=== PATIENT | female | born 1985 | race Caucasian/White ===

== ENCOUNTER 2017-02-06 07:53 | Inpatient (IN) | payer BC ==
[2017-02-06] MEDS ORDERED: Ampicillin 2 GM in Sodium Chloride 0.9% 100 ML IV ONE (17:57)
[2017-02-06] MEDS ORDERED: Sodium Chloride 0.9% 10 ML Syringe FLUSH PRN (17:58)
[2017-02-06] MEDS ORDERED: Lactated Ringers 1,000 ML IV SCH ×2 (18:00→18:15)
[2017-02-06] MEDS ORDERED: Ondansetron 4 MG/2 ML SDV IVPUSH PRN (18:02)
[2017-02-06] MEDS ORDERED: Lidocaine 1% 50 ML MDV INJECT ONE (18:02)
[2017-02-06] MEDS ORDERED: Oxytocin/Lactated Ringers 10 UNIT/1,000 ML BAG IV ONE (20:25)
[2017-02-06] MEDS ORDERED: Oxytocin/Lactated Ringers 10 UNIT/1,000 ML BAG IV SCH (20:30)
--- NOTE | 2017-02-06 21:24 | PCM.LDHP ---
L&D History of Present Illness - General Date of Service: 02/06/17 Admit Problem/Dx: Patient Status Order with Admit Dx/Problem 02/06/17 17:59 Patient Status [ADT] Routine Admission Diagnosis/Problem Admission Diagnosis/Problem 02/06/17 21:19 Intrauterine at 36-4/7 weeks gestation with onset of contractions 2-3 minutes apart. Source of Information: Patient History Limitations: Reports: No limitations - History of Present Illness Introduction:: Marcela is a 31-year-old 9 para 4-0-4-4 female who presents with contractions every 2-3 minutes apart, in early labor. ENE is 03/02/17 based on LMP. She was seen in clinic this afternoon and was calixto but with minimal pain. Her contractions were monitored in clinic - she had a reactive Nonstress test and negative contraction test - so she was sent to L&D. Contractions have progressed and she is starting to feel pain. Artificial rupture of membranes was performed. history: Marcela had regular care throughout this . She had bleeding early on that resolved without problems. An ultrasound was done in [place] at 15-0/7 weeks gestation and showed a subchorionic hemorrhage. Repeat ultrasound later showed the hemorrhage decreasing in size. She has also had some hair loss. She lives in [place] and has been concerned about making it to [place] for delivery. 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 ENE 03/02/17 based on LMP of 05/26/17. She has a history of 4 miscarriages in her 1st, 3rd, 5th, and 8th pregnancies. The second ended with a normal spontaneous vaginal delivery at 39 weeks gestation: 7lbs, 9oz female. Fourth ended with normal spontaneous vaginal delivery at 37 weeks with a 6lbs 13oz male. Her sixth and seventh pregnancies were also spontaneous vaginal deliveries: sixth was a 7lbs 11oz female delivered at 38 weeks and seventh delivered at 36 weeks with a 7lbs 9oz female. Menarche was at age 13. Menses are typically regular, 28 days apart, with moderate flow. No history of STIs. She is up-to-date on pap smears. blood work: Blood type AB positive, antibody negative. Rubella immune, VDRL/RPR nonreactive. HBsAg and HIV negative. Chlamydia and gonorrhea also negative. GBS positive. 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 Family History: - Mother: alive, some ortho problems - Father: alive, pancreatic cancer years ago, has mets now - One brother: alive and well - MGF: , pancreatic cancer - MGM: , metastatic cancer, HTN - PGF: , lung cancer - PGM: alive and well No history of reactions to anesthesia or bleeding/clotting disorders. Social History: Patient lives with her and four children in [place]. She denies use of tobacco products, alcohol, and illicit drugs. Review of Systems: General: Patient feels well overall, getting uncomfortable HEENT: No recent headaches, changes in vision. No rhinorrhea, sore throat. Cardiovascular: No chest pain or palpitations. Respiratory: No shortness of breath or wheezing. GI: No nausea or vomiting : Increased frequency, related to . Neuro/Psych: No signs of depression or anxiety. Physical Exam: General: The patient is a well-nourished female in no acute distress. HEENT: Normocephalic, atraumatic. PERRLA. Mucous membranes pink and moist. Neck: Supple, without masses. Cardiovascular: Regular rate and rhythm, without murmur. Respiratory: Clear to auscultation bilaterally. Abdomen: Gravid uterus, appropriate for gestational age. Cervical: 4+ cm, 0 station, 80% effaced, very soft, anterior Extremities: No swelling/edema. Neuro: Normal. - Related Data Allergies/Adverse Reactions: Allergies Allergy/AdvReac Type Severity Reaction Status Date / Time No Known Allergies Allergy Verified 02/13/15 10:20 CDT Home Medications: Home Meds . 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: , Spontaneous , Other (see below) Other OB/BYN History: 4 living children, 4 miscarriages Social & Family History - Family History Family Medical History: Noncontributory Oncologic: Reports: Pancreatic - Tobacco Use Smoking Status *Q: Never Smoker Second Hand Smoke Exposure: No - Caffeine Use Caffeine Use: Reports: None - Alcohol Use Days Per Week of Alcohol Use: 0 - Recreational Drug Use Recreational Drug Use: No H&P Review of Systems - Review of Systems: Review Of Systems: See Below L&D Exam - Exam Exam: See Below - Vital Signs Vital Signs: Last Vital Signs Temp 36.9 C 02/06/17 16:46 Pulse 75 02/06/17 16:46 Resp 18 02/06/17 16:46 BP 126/88 02/06/17 16:46 Pulse Ox Weight: 88.904 kg - Patient Data Lab Results last 24 hrs: Laboratory Results - last 24 hr 02/06/17 Range/Units 13:52 Urine Color Yellow (Yellow) Urine Appearance Clear (Clear) Urine pH 7.0 (5.0-8.0) Ur Specific [place] 1.015 (1.005-1.030) Urine Protein Negative (Negative) Urine Glucose (UA) Negative (Negative) Urine Ketones Negative (Negative) Urine Occult Blood Negative (Negative) Urine Nitrite Negative (Negative) Urine Bilirubin Negative (Negative) Urine Urobilinogen 0.2 (0.2-1.0) Ur Leukocyte Esterase Trace H (Negative) Problem List Initiated/Reviewed/Updated: Yes Orders Last 24hrs: Active Orders 24 hr Category Date Time Status Patient Status [ADT] Routine ADT 02/06/17 17:59 Active Activity as Tolerated [RC] PFP Care 02/06/17 17:58 Active Activity as Tolerated [RC] PFP Care 02/06/17 18:02 Active Communication Order [RC] ASDIRECTED Care 02/06/17 17:58 Active Communication Order [RC] ASDIRECTED Care 02/06/17 18:02 Active Heart Tones [RC] ASDIRECTED Care 02/06/17 18:00 Active Notify Provider [RC] PFP Care 02/06/17 17:58 Active Notify Provider [RC] PFP Care 02/06/17 18:02 Active Notify Provider [RC] PRN Care 02/06/17 17:58 Active Notify Provider [RC] PRN Care 02/06/17 18:02 Active OB Check [OM.PC] Click To Edit Care 02/06/17 17:56 Ordered Peripheral IV Care [RC] . DIRECTED Care 02/06/17 18:00 Active Pump Management, Intrathecal [RC] ASDIRECTED Care 02/06/17 18:01 Active Urinary Catheter Assessment [RC] ASDIRECTED Care 02/06/17 17:58 Active Vital Signs [RC] 04,12,20 Care 02/06/17 18:02 Active Vital Signs [RC] PER UNIT ROUTINE Care 02/06/17 17:58 Active Clear Liquid Diet [DIET] Diet 02/06/17 Dinner Active Regular Diet [DIET] Diet 02/06/17 Dinner Active Ampicillin 1 gm Med 02/06/17 22:00 Active Sodium Chloride 0.9% [Normal Saline] 100 ml IV Q4H Lactated Ringers [Ringers, Lactated] 1,000 ml Med 02/06/17 18:00 Active IV ASDIRECTED Lactated Ringers [Ringers, Lactated] 1,000 ml Med 02/06/17 18:15 Active IV ASDIRECTED Ondansetron [Zofran] Med 02/06/17 18:02 Active 4 mg IVPUSH Q4H PRN Oxytocin/Lactated Ringers [Pitocin in LR 10 Units/1,000 Med 02/06/17 20:30 Active ML] 10 unit in 1,000 ml IV ASDIRECTED Sodium Chloride 0.9% [Saline Flush] Med 02/06/17 17:58 Active 10 ml FLUSH ASDIRECTED PRN Electronic Heart Tones Ext w TOCO [WOMSER] Ot 02/06/17 17:58 Ordered Routine Electronic Heart Tones Ext w TOCO [WOMSER] Ot 02/06/17 18:02 Ordered Routine Electronic Heart Tones Internal [WOMSER] Per Unit Ot 02/06/17 17:58 Ordered Routine Electronic Heart Tones Internal [WOMSER] Per Unit Ot 02/06/17 18:02 Ordered Routine Peripheral IV Insertion Adult [OM.PC] Routine Ot 02/06/17 17:58 Ordered Peripheral IV Insertion Adult [OM.PC] Routine Ot 02/06/17 18:02 Ordered Resuscitation Status Routine Resus Stat 02/06/17 17:58 Ordered Medication Orders Ampicillin Sodium 1 gm/ Sodium (Chloride) 100 mls @ 200 mls/hr IV Q4H MISTY Lactated Ringer's (Ringers, Lactated) 1,000 mls @ 100 mls/hr IV ASDIRECTED MISTY Lactated Ringer's (Ringers, Lactated) 1,000 mls @ 100 mls/hr IV ASDIRECTED MISTY Oxytocin/Lactated Ringer's (Pitocin In Lr 10 Units/1,000 Ml) 10 unit in 1,000 mls @ 500 mls/hr IV ASDIRECTED [facility] Ondansetron HCl (Zofran) 4 mg IVPUSH Q4H PRN PRN Reason: Nausea/Vomiting Sodium Chloride (Saline Flush) 10 ml FLUSH ASDIRECTED PRN PRN Reason: Keep Vein Open Assessment/Plan Comment:: Assessment: 1. Intrauterine at 36-4/7 weeks gestation with onset of labor of contractions 2-3 minutes apart, with cervical change. 2. GBS positive. 3. Plans natural labor - without epidural. 4. Plans to nurse. Plan: 1. Anticipate normal spontaneous vaginal delivery. 2. IV ampicillin for GBS prophylaxis. 3. Encourage nursing behaviors.
[2017-02-06] MEDS ORDERED: Ampicillin 1 GM in Sodium Chloride 0.9% 100 ML IV SCH (22:00)
--- NOTE | 2017-02-06 22:37 | PCM.SN ---
- Free Text/Narrative Note: Marcela is a 31-year-old G9 now P4-1-4-5 female who presented with contractions 2-3 minutes apart at 36-4/7 weeks gestation. She progressed to 5 cm and artificial rupture of membranes was performed. She then quickly progressed to complete and pushed once. She delivered a 2990g, 6lb 9oz, 19.25 in female, in VALERIY position over an intact perineum at 2212 hours. There was blood-tinged amniotic fluid and 3-vessel cord was noted. IV pitocin was then started. Apgars were 8 and 9, at 1 and 5 minutes, respectively. Placenta then delivered at 2216 hours in Kaye presentation. It was noted to have old clots as well as new blood clots, but was intact. She did have a minor superficial abrasion on the right labia minora but it did not need any sutures. No epidural or other pain medications were used. EBL 200cc. Patient plans to nurse. Mom and baby doing well.
[2017-02-06] MEDS ORDERED: Witch Hazel Medicated Pads 100/Jar TOP PRN (23:18)
[2017-02-06] MEDS ORDERED: Acetaminophen 325 MG Tab PO PRN (23:18)
[2017-02-06] MEDS ORDERED: Benzocaine/Menthol 20%-0.5% Spray 56 GM Canister TOP PRN (23:18)
[2017-02-06] MEDS ORDERED: Lanolin 100% Cream 7 GM Tube TOP PRN (23:18)
[2017-02-06] MEDS ORDERED: Docusate Sodium 100 MG Cap PO PRN (23:18)
[2017-02-07] MEDS: Ibuprofen 600 MG Tab PO PRN (00:10)
--- NOTE | 2017-02-07 09:28 | PCM.SN ---
- Free Text/Narrative Note: Subjective: This is day of delivery for Marcela. She is feeling well today, has minimal pain, and is resting comfortable. She is breast feeding and states it is going well. Objective: WBC 12.7, Hgb 9.1, Hct 30%. Vital signs are stable. She is afebrile. Abdomen is soft, nondistended, nontender. Uterine fundus is firm and below the umbilicus. No extremity swelling or pain. Assessment: 1. Day of delivery, post normal spontaneous vaginal delivery. 2. Breast feeding. Plan: 1. Patient may go home tomorrow, depends on when baby is discharged. 2. Continue breast feeding behaviors.
[2017-02-08] MEDS: Ibuprofen 600 MG Tab PO PRN (00:31)
--- NOTE | 2017-02-08 07:30 | PCM.DCSUM1 ---
Discharge Summary - Hospital Course Free Text/Narrative:: Marcela is a 31-year-old G9 now P4-1-4-5 female who presented with contractions 2-3 minutes apart at 36-4/7 weeks gestation. She progressed to 5 cm and artificial rupture of membranes was performed. She then quickly progressed to complete and pushed once. She delivered a 2990g, 6lb 9oz, 19.25 in female, in VALERIY position over an intact perineum at 2212 hours. There was blood-tinged amniotic fluid and 3-vessel cord was noted. IV pitocin was then started. Apgars were 8 and 9, at 1 and 5 minutes, respectively. Placenta then delivered at 2216 hours in Kaye presentation. It was noted to have old clots as well as new blood clots, but was intact. She did have a minor superficial abrasion on the right labia minora but it did not need any sutures. No epidural or other pain medications were used. EBL 200cc. Patient plans to nurse. Mom and baby doing well. patient is doing well. She is nursing well, lochia is minimal. She is ambulating well, voiding without problems and has no concerns. She desires discharge today. - Discharge Data Discharge Date: 02/08/17 Discharge Disposition: Home, Self-Care 01 Condition: Good - Patient Instructions Diet: Regular Diet as Tolerated (Nursing diet was increased calories and calcium.) Activity: As Tolerated (No intercourse or tampons until bleeding resolves.) Driving: May Drive Today Showering/Bathing: May Shower (May take a bath) Notify Provider of: Fever, Increased Pain, Swelling and Redness, Nausea and/or Vomiting - Discharge Plan Home Medications: Home Meds Ibuprofen [IJD: Ibuprofen] 600 mg PO Q4H PRN #30 tablet 02/08/17 [Rx] Referrals: Brandon Alexander MD [Physician] - (Return to clinic-Dr. Alexander-6 weeks-[facility].) - Discharge Summary/Plan Comment DC Time >30 min.: No Discharge Summary/Plan Comment: Discharge instructions: 1. Discharge home 2. Regular, high fiber, nursing diet. 3. Precautions given concern increased pain, bleeding, temperature, signs/ symptoms of DVT/PE 4. Medications per home medication as printed, discussed with then given to the patient. 5. Return to clinic-Dr. Alexander-6 weeks-[facility] [facility]. Diagnosis: 36-4/7 week IUP-delivered Condition: Good - Patient Data Vitals - Most Recent: Last Vital Signs Temp 36.5 C 02/08/17 04:26 Pulse 83 02/08/17 04:26 Resp 18 02/08/17 04:26 BP 113/77 02/08/17 04:26 Pulse Ox 99 02/08/17 04:26 Weight - Most Recent: 88.904 kg Lab Results - Last 24 hrs: Laboratory Results - last 24 hr 02/07/17 Range/Units 07:05 WBC 12.69 H (3.98-10.04) K/mm3 RBC 4.15 (3.98-5.22) M/mm3 Hgb 9.1 L (11.2-15.7) gm/L Hct 30.0 L (34.1-44.9) % MCV 72.3 L (79.4-94.8) fl MCH 21.9 L (25.6-32.2) pg MCHC 30.3 L (32.2-35.5) g/dl RDW Std Deviation 42.3 (36.4-46.3) fL Plt Count 263 (182-369) K/mm3 MPV 10.7 (9.4-12.3) fl Med Orders - Current: Current Medications Acetaminophen (Tylenol) 650 mg PO Q4H PRN PRN Reason: mild pain or fever Benzocaine/Menthol (Dermoplast Pain Relief [place]) 0 gm TOP ASDIRECTED PRN PRN Reason: Perineal Comfort Measure Last Admin: 02/07/17 00:09 Dose: 1 applic Docusate Sodium (Colace) 100 mg PO BID PRN PRN Reason: Constipation Emollient Ointment (Lansinoh Hpa) 0 gm TOP ASDIRECTED PRN PRN Reason: Sore Nipples Ibuprofen (Motrin) 600 mg PO Q4H PRN PRN Reason: Mild pain or fever Last Admin: 02/08/17 00:31 Dose: 600 mg Witch Justina (Tucks) 1 pad TOP ASDIRECTED PRN PRN Reason: Hemorrhoid pain Last Admin: 02/07/17 00:09 Dose: 1 applic Discontinued Medications Ampicillin Sodium 2 gm/ Sodium (Chloride) 100 mls @ 200 mls/hr IV ONETIME ONE Stop: 02/06/17 18:26 Last Admin: 02/06/17 18:23 Dose: 200 mls/hr Ampicillin Sodium 1 gm/ Sodium (Chloride) 100 mls @ 200 mls/hr IV Q4H [facility] Last Admin: 02/06/17 22:00 Dose: 200 mls/hr Lactated Ringer's (Ringers, Lactated) 1,000 mls @ 100 mls/hr IV ASDIRECTED MISTY Lactated Ringer's (Ringers, Lactated) 1,000 mls @ 100 mls/hr IV ASDIRECTED MISTY Oxytocin/Lactated Ringer's (Pitocin In Lr 10 Units/1,000 Ml) 10 unit in 1,000 mls @ 500 mls/hr IV ASDIRECTED MISTY Last Admin: 02/06/17 22:12 Dose: 500 mls/hr Oxytocin/Lactated Ringer's (Pitocin In Lr 10 Units/1,000 Ml) Confirm Administered Dose 10 unit in 1,000 mls @ as directed IV .STK-MED ONE Stop: 02/06/17 20:26 Last Admin: 02/07/17 00:51 Dose: Not Given Lidocaine HCl (Xylocaine 1%) 10 ml INJECT ONETIME ONE Stop: 02/06/17 18:03 Last Admin: 02/07/17 00:51 Dose: Not Given Ondansetron HCl (Zofran) 4 mg IVPUSH Q4H PRN PRN Reason: Nausea/Vomiting Sodium Chloride (Saline Flush) 10 ml FLUSH ASDIRECTED PRN PRN Reason: Keep Vein Open *Q Meaningful Use (DIS) - VTE *Q VTE Criteria *Q: - Stroke *Q Stroke Criteria *Q: - AMI *Q AMI Criteria *Q:
[2017-02-08 13:34] VITALS: BP 124/83
== END 2017-02-08 12:20 | disposition home or self-care (01) | DRG 560 ==
LOC: JD.WOMH 07:53 → JD.OBCHECK 07:53 → JD.OB 16:25 → JD.OBCHECK 17:59 → JD.OB 17:59 → OBSVTOIN 22:12
PROVIDERS: ADMIT Obstetrics & Gynecology; ATTEND Obstetrics & Gynecology
PROC: 10E0XZZ Delivery of Products of Conception, External Approach (ICD-10-PCS; principal; 2017-02-06)
PROC: 10907ZC Drainage of Amniotic Fluid, Therapeutic from Products of Conception, Via Natural or Artificial Opening (ICD-10-PCS; 2017-02-06)
DX: O99.824 Streptococcus B carrier state complicating childbirth (principal); Z3A.37 37 weeks gestation of pregnancy; Z37.0 Single live birth
CPT/HCPCS: 36415; 81003; 85027; A9270-GY; J0290; J2590; J7030

== ENCOUNTER 2020-01-10 09:11 | Day surgery (SDC) | payer BC, OTHER ==
[~2020-01-10 09:11] MED LIST: Lactated Ringers 1,000 ML IV SCH; Lidocaine 1%/Sod Bicarbonate in NS 8.4% 1 ML Syringe IDERM PRN; Sodium Chloride 0.9% 10 ML Syringe FLUSH PRN
[2020-01-10] MEDS ORDERED: Scopolamine 1.5 MG Transdermal Patch TRDERM ONE (09:45)
--- NOTE | 2020-01-10 09:45 | PCM.PREANE ---
Preanesthetic Assessment - Anesthesia/Transfusion/Family Hx Anesthesia History: Prior Anesthesia Without Reaction Transfusion History: No Prior Transfusion(s) - Review of Systems General: No Symptoms Pulmonary: No Symptoms Cardiovascular: No Symptoms Gastrointestinal: No Symptoms Neurological: No Symptoms Other: Reports: None - Physical Assessment NPO Status Date: 01/09/20 NPO Status Time: 17:00 ASA Class: 1 Mental Status: Alert & Oriented x3 Airway Class: Mallampati = 1 Dentition: Reports: Normal Dentition Thyro-Mental Finger Breadths: 3 Mouth Opening Finger Breadths: 3 ROM/Head Extension: Full Lungs: Clear to Auscultation, Normal Respiratory Effort Cardiovascular: Regular Rate, Regular Rhythm - Allergies Allergies/Adverse Reactions: Allergies Allergy/AdvReac Type Severity Reaction Status Date / Time No Known Allergies Allergy Verified 01/09/20 12:06 - Acknowledgements Anesthesia Type Planned: General Anesthesia, MAC Pt an Appropriate Candidate for the Planned Anesthesia: Yes Alternatives and Risks of Anesthesia Discussed w Pt/Guardian: Yes Pt/Guardian Understands and Agrees with Anesthesia Plan: Yes PreAnesthesia Questionnaire - Past Health History Medical/Surgical History: Denies Medical/Surgical History HEENT History: Reports: Impaired Vision Cardiovascular History: Reports: None Respiratory History: Reports: None Gastrointestinal History: Reports: Other (See Below) Other Gastrointestinal History: abdominal pain Genitourinary History: Reports: UTI, Recurrent, Other (See Below) Other Genitourinary History: frequency 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: , Spontaneous , Other (See Below) Other OB/BYN History: SAB, , low progestone, yeast infection, breast implants Musculoskeletal History: Reports: None Neurological History: Reports: Migraines Psychiatric History: Reports: Anxiety, Depression, Other (See Below) Other Psychiatric History: post depression Endocrine/Metabolic History: Reports: None Hematologic History: Reports: None Immunologic History: Reports: None Oncologic (Cancer) History: Reports: None Dermatologic History: Reports: Other (See Below) Other Dermatologic History: inclusion cyst, hair loss - Infectious Disease History Infectious Disease History: Reports: None - Past Surgical History Head Surgeries/Procedures: Reports: None HEENT Surgical History: Reports: LASIK Cardiovascular Surgical History: Reports: None Respiratory Surgical History: Reports: None GI Surgical History: Reports: None Female Surgical History: Reports: Breast Implant (2015, removed 2018), D&C Male Surgical History: Reports: None Endocrine Surgical History: Reports: None Neurological Surgical History: Reports: None Musculoskeletal Surgical History: Reports: None Oncologic Surgical History: Reports: None Dermatological Surgical History: Reports: None - SUBSTANCE USE Smoking Status *Q: Never Smoker Recreational Drug Use History: No - HOME MEDS Home Medications: Home Meds Multivitamin [Multiple Vitamins] 1 tab PO DAILY 01/09/20 [History] - CURRENT (IN HOUSE) MEDS Current Meds: Current Medications Lactated Ringer's (Ringers, Lactated) 1,000 mls @ 125 mls/hr IV ASDIRECTED MISTY Stop: 01/10/20 23:00 Lidocaine/Sodium Bicarbonate (Buffered Lidocaine 1% In Ns 8.4%) 0.25 ml IDERM ONETIME PRN PRN Reason: Prior to IV Start Stop: 01/10/20 18:00 Sodium Chloride (Saline Flush) 10 ml FLUSH ASDIRECTED PRN PRN Reason: Keep Vein Open Stop: 01/10/20 18:00
[2020-01-10] MEDS ORDERED: fentaNYL 100 MCG/2 ML SDV ONE (09:58)
[2020-01-10] MEDS ORDERED: Midazolam 1 MG/ML 2 ML SDV ONE (09:58)
[2020-01-10] MEDS ORDERED: Propofol 200 MG/20 ML SDV ONE (09:58)
[2020-01-10] MEDS ORDERED: Lidocaine 1% 4 ML ONE (09:59)
[2020-01-10] MEDS ORDERED: Ketorolac 30 MG/ML SDV ONE (09:59)
[2020-01-10] MEDS ORDERED: ceFAZolin 1 GM Vial ONE (10:05)
[2020-01-10] MEDS ORDERED: Ketamine 500 mg/10 ML MDV ONE (10:13)
[2020-01-10] MEDS ORDERED: Ondansetron 4 MG/2 ML SDV ONE (11:16)
[2020-01-10] MEDS ORDERED: Ondansetron 4 MG/2 ML SDV IVPUSH PRN (11:40)
--- NOTE | 2020-01-10 11:52 | PCM48HPAN ---
Post Anesthesia Note - EVALUATION WITHIN 48HRS OF ANESTHETIC Vital Signs in Normal Range: Yes Patient Participated in Evaluation: Yes Respiratory Function Stable: Yes Airway Patent: Yes Cardiovascular Function Stable: Yes Hydration Status Stable: Yes Pain Control Satisfactory: Yes Nausea and Vomiting Control Satisfactory: Yes Mental Status Recovered: Yes Vital Signs: Last Vital Signs Temp 97.9 F 01/10/20 11:37 Pulse 62 01/10/20 11:37 Resp 14 01/10/20 11:37 BP 90/67 01/10/20 11:37 Pulse Ox 100 01/10/20 11:37
--- NOTE | 2020-01-10 11:55 | PCM.OPNOTE ---
- General Post-Op/Procedure Note Date of Surgery/Procedure: 01/10/20 Operative Procedure(s): Hysteroscopy, D&C, NovaSure endometrial ablation Findings: Uterus with cervix sounded to 8.5 cm. Cavity itself was 5.5 cm. The width was 4.4 cm. No other abnormalities noted. Pre Op Diagnosis: 1. Menorrhagia. 2. Dysmenorrhea Post-Op Diagnosis: Same Anesthesia Technique: MAC Primary Surgeon: Brandon Alexander Anesthesia Provider: Juan Pablo Ruth Aircraft Manager: Kriss Gutierrez Pathology: Endometrial curettings Fluid Replacement, Intraop: 100 EBL in mLs: 5 Complications: None Condition: Good Free Text/Narrative:: Surgery duration: 9 minutes Procedure: Patient was instructed as to procedure, its risks, benefits, limitations and follow-up and had signed a consent for surgery. The patient is taken the operative placed in a supine position on the operating table. She received 2 g of Ancef preoperatively for infection prophylaxis and had sequential compression stockings in place for DVT prophylaxis. Patient was given general anesthesia and an LMA was placed for ventilation. She is placed in a dorsal lithotomy position and prepped and draped in usual fashion. An exam under anesthesia was performed. Findings as described above. A weighted speculum was placed in the vagina. Cervix is visualized. It was grasped anteriorly with a single-tooth tenaculum. Uterus was then sounded to a depth of 9 cm. The cervix was dilated to allow passage of a 5 mm 12 rigid hysteroscope. This was placed without problem and normal saline was used as a distending medium. The endometrial cavity was visualized. Findings as described above. D&C was performed. Moderate amount tissue was obtained. Minimal bleeding was encountered. Endometrial ablation was then performed. Should be noted consent was appropriately signed by the patient prior to the procedure. The cervix was dilated to allow placement of the NovaSure endometrial apparatus. Uterine cavity was 5.5 cm in length. Therapy last 1 and 30 seconds. The wattage was 133. Width of the uterus was 4.4 cm. Hysteroscope was then placed back into the endometrial cavity. Blood was flushed out and the findings were consistent with a cauterized endometrial cavity. At this point the scope was removed. The vagina was cleared of old blood , the cervix was released and the weighted speculum was removed. Patient was returned to supine position and awakened from general anesthesia. She tolerated the procedure well and operating room in good condition.
[2020-01-10 12:03] VITALS: BP 109/81
[2020-01-10 12:57] VITALS: PULSE 58
[2020-01-10] MEDS ORDERED: Ketorolac 30 MG/ML SDV IVPUSH SCH (16:00)
== END 2020-01-10 12:41 | disposition home or self-care (01) ==
LOC: JD.SDS 09:11
PROVIDERS: ATTEND Obstetrics & Gynecology
DX: N92.0 Excessive and frequent menstruation with regular cycle (principal); N94.6 Dysmenorrhea, unspecified; N81.10 Cystocele, unspecified; N81.6 Rectocele; F41.9 Anxiety disorder, unspecified; Z98.890 Other specified postprocedural states
CPT/HCPCS: 36415; 58563; 81001; 81025; 85025; A9270; J0690; J1885; J2001; J2250; J2405; J2704; J3010; J7120; 00952